=== PATIENT | male | born 1940 | race Caucasian/White ===

== ENCOUNTER 2018-11-24 11:55 | Inpatient (IN) ==
[2018-11-24] MEDS ORDERED: Morphine Inj 4 MG/ML Vial IV.PUSH ONE (12:21)
--- NOTE | 2018-11-24 12:26 | ED ---
HPI General Chief Complaint: Abdominal Pain Stated Complaint: Abd pain/N/V Time Seen by Provider: 11/24/18 12:21 Source: patient Mode of arrival: ambulatory Limitations: no limitations History of Present Illness HPI narrative: 78-year-old male patient with history of hypertension, chronic back pain, presents to the ER today because of periumbilical abdominal pains that started yesterday while [place] the [place]. He states it is now a 3 out of 10 but it is waxing and waning. He has vomited several times. He denies any diarrhea, fevers, or any other symptoms. He does not know of any exacerbating or alleviating factors. modifying Factors: None Associated Signs & Symptoms: Periumbilical abdominal pain, nausea and vomiting Risk Factors: None Related Data Home Medications Medication Instructions Recorded Confirmed Cbd Oil 0.5 ml PO DAILY 11/24/18 11/24/18 amlodipine [Norvasc] 2.5 mg PO DAILY 11/24/18 11/24/18 atorvastatin 40 mg PO DAILY 11/24/18 11/24/18 gabapentin 100 mg PO TID 11/24/18 11/24/18 losartan 12.5 mg PO DAILY 11/24/18 11/24/18 Allergies Allergy/AdvReac Type Severity Reaction Status Date / Time acetaminophen [From Tylenol] Allergy Severe Dizziness Verified 11/24/18 12:07 Review of Systems ROS: all other systems reviewed are negative PMFSH History History Provided By: Patient Medical History Medical History Chronic back pain (Acute) High cholesterol (Acute) History of prostate cancer (Acute) HTN (hypertension) (Acute) Surgical History Surgical History History of left-sided carotid endarterectomy (Acute) Hx of partial nephrectomy (Acute) Social History Social History Substance History: No History of Abuse Second Hand Smoke Exposure: Yes Smoking Status: Heavy tobacco smoker Tobacco Type: Cigarettes How Often Do You Have a Drink Containing Alcohol: 4 or more times a week Recent Travel in [facility] within the Last 8 Weeks: No Recent Out of Country Travel within the Last 8 Weeks: No Exam Narrative Exam Narrative: GENERAL: Well-developed elderly white male patient currently in mild distress. Awake and oriented x3. SKIN: Focused skin assessment warm/dry. HEAD: Atraumatic. Normocephalic. EYES: Pupils equal and round. No scleral icterus. No injection or drainage. ENT: No nasal bleeding or discharge. Mucous membranes pink and moist. NECK: Trachea midline. No JVD. CARDIOVASCULAR: Regular rate and rhythm. No murmur appreciated. RESPIRATORY: No accessory muscle use. Clear to auscultation. Breath sounds equal bilaterally. GASTROINTESTINAL: Abdomen soft, mild periumbilical tenderness without guarding or rebound, nondistended. Hepatic and splenic margins not palpable. GENITOURINARY: Circumcised. Testes descended bilaterally without evidence of rotation. No lesions or erythema. No urethral discharge. There are notable bilateral inguinal hernias which are quite easily reducible. Nontender to palpation. MUSCULOSKELETAL: No obvious deformities. No clubbing. No cyanosis. No edema. NEUROLOGICAL: Awake and alert. No obvious cranial nerve deficits. Motor grossly within normal limits. Normal speech. PSYCHIATRIC: Appropriate mood and affect; insight and judgment normal. Course Initial Documented Vital Signs Temperature 98.2 F 11/24/18 12:07 Pulse Rate 50 L 11/24/18 12:07 Respiratory Rate 16 11/24/18 12:07 Blood Pressure 167/73 H 11/24/18 12:07 Pulse Oximetry 98 11/24/18 12:07 Last Documented Vital Signs Temperature 98.2 F 11/24/18 12:07 Pulse Rate 50 L 11/24/18 12:07 Respiratory Rate 16 11/24/18 12:07 Blood Pressure 167/73 H 11/24/18 12:07 Pulse Oximetry 98 11/24/18 12:25 Medical Decision Making MDM Narrative Medical decision making narrative: Lab work shows elevated BUN and creatinine. Patient has history of previous partial nephrectomy. It is unclear whether the elevation in BUN and creatinine are new or not. We did not have previous records. CAT scan is showing signs of bowel obstruction. It is initially commented by radiology that there might be a incarcerated or obstructed inguinal hernia. On my evaluation, the hernias are quite easily reducible and I do not think that this is the point of obstruction. At this point, my plan would be to admit the patient for observation for bowel obstruction. Case is discussed with Dr. Rodriguez who is requesting that I put in an NG tube. Medical Screen Exam Complete: Yes Emergency Medical Condition: Yes Differential Diagnosis Differential Diagnosis: Gastritis versus gastroenteritis versus pancreatitis versus other acute intra-abdominal processes Lab Data Lab results reviewed: Yes I reviewed the patient's lab results. Result diagrams: 11/24/18 12:45 11/24/18 12:45 Lab Results 11/24/18 11/24/18 11/24/18 Range/Units 12:30 12:45 12:45 CBC w Diff Auto diff final WBC 10.2 (4.0-11.0) th/mm3 RBC 4.16 L (4.50-5.90) mil/mm3 Hgb 13.0 (13.0-17.0) gm/dL Hct 38.2 L (39.0-51.0) % MCV 91.8 (80.0-100.0) fL MCH 31.3 (27.0-34.0) pg MCHC 34.1 (32.0-36.0) % RDW 12.6 (11.6-17.2) % Plt Count 323 (150-450) th/mm3 MPV 8.8 (7.0-11.0) fL Neut % (Auto) 91.4 H (16.0-70.0) % Lymph % (Auto) 3.7 L (9.0-44.0) % [place] % (Auto) 4.6 (0.0-8.0) % Eos % (Auto) 0.0 (0.0-4.0) % Baso % (Auto) 0.3 (0.0-2.0) % Neut # (Auto) 9.3 H (1.8-7.7) th/mm3 Lymph # (Auto) 0.4 L (1.0-4.8) th/mm3 [place] # (Auto) 0.5 (0.0-0.9) th/mm3 Eos # (Auto) 0.0 (0.0-0.4) th/mm3 Baso # (Auto) 0.0 (0.0-0.2) th/mm3 WBC Differential . Differential Comment . Sodium 135 L (136-145) meq/L Potassium 4.6 (3.5-5.1) meq/L Chloride 96 L (98-107) meq/L Carbon Dioxide 28.0 (21.0-32.0) meq/L Anion Gap 11 (5-15) meq/L BUN 49 H (7-18) mg/dL Creatinine 2.60 H (0.60-1.30) mg/dL Estimated GFR 24 L (>89) mL/min Random Glucose 147 H (74-106) mg/dL Lactic Acid (0.4-2.0) mmol/L Calcium 9.9 (8.5-10.1) mg/dL Magnesium 2.6 H (1.5-2.5) mg/dL Total Bilirubin 1.0 (0.2-1.0) mg/dL AST 29 (15-37) U/L ALT 29 (12-78) U/L Alkaline Phosphatase 53 (45-117) U/L Total Protein 7.8 (6.4-8.2) g/dL Albumin 4.3 (3.4-5.0) g/dL Lipase 152 (73-393) U/L Urine Color Yellow (Yellw/Straw) Urine Clarity Clear (Clear) Urine pH 6.0 (5.0-8.5) Ur Specific [place] 1.025 (1.002-1.035) Urine Protein Trace (Neg-Trace) mg/dL Urine Glucose (UA) Negative (Negative) mg/dL Urine Ketones Trace H (Negative) mg/dL Urine Occult Blood Negative (Negative) Urine Nitrate Negative (Negative) Urine Bilirubin Negative (Negative) Urine Ictotest Negative (Negative) Urine Urobilinogen 0.2 (Less than 2) mg/dL Ur Leukocyte Esterase Negative (Negative) Urine WBC 0-5 (0-5) /hpf Urine Bacteria Rare H (None) /hpf Hyaline Casts 11-30 H (0-3) /lpf Urine Mucus Many H (Occasional) /lpf Micro UA Comment Culture not ind Ur Microscopic Review Microscopic reviewed Urine Culture Comments Culture not ind 11/24/18 Range/Units 12:48 CBC w Diff WBC (4.0-11.0) th/mm3 RBC (4.50-5.90) mil/mm3 Hgb (13.0-17.0) gm/dL Hct (39.0-51.0) % MCV (80.0-100.0) fL MCH (27.0-34.0) pg MCHC (32.0-36.0) % RDW (11.6-17.2) % Plt Count (150-450) th/mm3 MPV (7.0-11.0) fL Neut % (Auto) (16.0-70.0) % Lymph % (Auto) (9.0-44.0) % [place] % (Auto) (0.0-8.0) % Eos % (Auto) (0.0-4.0) % Baso % (Auto) (0.0-2.0) % Neut # (Auto) (1.8-7.7) th/mm3 Lymph # (Auto) (1.0-4.8) th/mm3 [place] # (Auto) (0.0-0.9) th/mm3 Eos # (Auto) (0.0-0.4) th/mm3 Baso # (Auto) (0.0-0.2) th/mm3 WBC Differential Differential Comment Sodium (136-145) meq/L Potassium (3.5-5.1) meq/L Chloride (98-107) meq/L Carbon Dioxide (21.0-32.0) meq/L Anion Gap (5-15) meq/L BUN (7-18) mg/dL Creatinine (0.60-1.30) mg/dL Estimated GFR (>89) mL/min Random Glucose (74-106) mg/dL Lactic Acid 1.6 (0.4-2.0) mmol/L Calcium (8.5-10.1) mg/dL Magnesium (1.5-2.5) mg/dL Total Bilirubin (0.2-1.0) mg/dL AST (15-37) U/L ALT (12-78) U/L Alkaline Phosphatase (45-117) U/L Total Protein (6.4-8.2) g/dL Albumin (3.4-5.0) g/dL Lipase (73-393) U/L Urine Color (Yellw/Straw) Urine Clarity (Clear) Urine pH (5.0-8.5) Ur Specific [place] (1.002-1.035) Urine Protein (Neg-Trace) mg/dL Urine Glucose (UA) (Negative) mg/dL Urine Ketones (Negative) mg/dL Urine Occult Blood (Negative) Urine Nitrate (Negative) Urine Bilirubin (Negative) Urine Ictotest (Negative) Urine Urobilinogen (Less than 2) mg/dL Ur Leukocyte Esterase (Negative) Urine WBC (0-5) /hpf Urine Bacteria (None) /hpf Hyaline Casts (0-3) /lpf Urine Mucus (Occasional) /lpf Micro UA Comment Ur Microscopic Review Urine Culture Comments Imaging Data Attestation: I personally reviewed and interpreted this imaging study as follows : Radiologist's impression: Abdomen/Pelvis CT 11/24/18 12:21 CONCLUSION: 1. Dilated loops of proximal and mid small bowel consistent with obstruction. The cause of obstruction may be related to right inguinal hernia containing small bowel loops. 2. Left inguinal hernia containing large bowel without obstruction. 3. Soft tissue density along the posterior left kidney with calcifications may be related to postsurgical changes. Follow-up outpatient imaging recommended. 4. Hepatic cyst. 5. Punctate renal vascular calcifications versus nonobstructing calculi. Discharge Plan Discharge Disposition Patient Disposition: ED Admit(ED Internal Use Only) Discharge Condition Condition: Stable Discharge Order Discharge Orders: ED Use Only Admit Order (Routine); Ordered 11/24/18 Ordered By: Zion Lynne Discharge Details Anticipated Discharge Date: 11/24/18 Diagnosis: Small bowel obstruction Physicians Team ED Provider: Zion Lynne Rxs /Orders / Referrals /Forms Prescriptions: No Action atorvastatin 40 mg Tablet 40 mg PO DAILY RF: 0 amlodipine [Norvasc] 2.5 mg Tablet 2.5 mg PO DAILY RF: 0 losartan 25 mg Tablet 12.5 mg PO DAILY RF: 0 gabapentin 100 mg Capsule 100 mg PO TID RF: 0 Cbd Oil 0.5 ml PO DAILY RF: 0 Status ED Status: With Doctor
[2018-11-24 13:07] LABS: Chloride 96 meq/L (98-107); Potassium 4.6 meq/L (3.5-5.1); Sodium 135 meq/L (136-145)
[2018-11-24 13:09] LABS: Baso % (Auto) 0.3 % (0.0-2.0); Hematocrit 38.2 % (39.0-51.0); Lymph # (Auto) 0.4 th/mm3 (1.0-4.8); Lymph % (Auto) 3.7 % (9.0-44.0); Mean Corpuscular HGB Conc 34.1 % (32.0-36.0); Mean Corpuscular Hemoglobin 31.3 pg (27.0-34.0); Mean Corpuscular Volume 91.8 fL (80.0-100.0); Mean Platelet Volume 8.8 fL (7.0-11.0); Mono # (Auto) 0.5 th/mm3 (0.0-0.9); Mono % (Auto) 4.6 % (0.0-8.0); Neut # (Auto) 9.3 th/mm3 (1.8-7.7); Neut % (Auto) 91.4 % (16.0-70.0); Platelet Count 323 th/mm3 (150-450); Red Blood Count 4.16 mil/mm3 (4.50-5.90); Red Cell Distribution Width 12.6 % (11.6-17.2); White Blood Count 10.2 th/mm3 (4.0-11.0)
[2018-11-24 13:11] LABS: Albumin 4.3 g/dL (3.4-5.0); Anion Gap 11 meq/L (5-15); Blood Urea Nitrogen 49 mg/dL (7-18); Calcium 9.9 mg/dL (8.5-10.1); Glucose,Random 147 mg/dL (74-106); Lipase 152 U/L (73-393); Magnesium 2.6 mg/dL (1.5-2.5)
[2018-11-24 13:14] LABS: Alanine Aminotransferase 29 U/L (12-78); Aspartate Aminotransferase 29 U/L (15-37); Glomerular Filtration Rate 24 mL/min (>89)
[2018-11-24 13:16] LABS: Total Protein 7.8 g/dL (6.4-8.2)
[2018-11-24 13:17] LABS: Alkaline Phosphatase 53 U/L (45-117)
[2018-11-24 13:51] LABS: Clarity,Urine Clear (Clear); Color,Urine Yellow (Yellw/Straw); Glucose,Urine (UA) Negative (Negative); Leukocyte Esterase,Urine Negative (Negative); Nitrite,Urine Negative (Negative); Specific Gravity,Urine 1.025 (1.002-1.035); Urobilinogen,Urine 0.2 mg/dL (Less than 2)
--- NOTE | 2018-11-24 13:51 | CT ---
EXAM DATE: 11/24/2018 1:40 PM EST AGE/SEX: 78 years / Male INDICATIONS: Periumbilical pain with nausea and vomiting. CLINICAL DATA: This is the patient's initial encounter. Patient reports that signs and symptoms have been present for 2 days and indicates a pain score of 3/10. MEDICAL/SURGICAL HISTORY: Hypercholesterolemia. Carcinoma, prostatic. Hypertension. Carotid e ndarterectomy. Partial nephrectomy. RADIATION DOSE: 10.27 CTDI (mGy) COMPARISON: No prior exams available for comparison. TECHNIQUE: Multiple contiguous axial images were obtained through the abdomen. Images were obtained using multiple row detector helical technique. Using automated exposure control and adjustment of the mA and/or kV according to patient size, radiation dose was kept as low as reasonably achievable to o btain optimal diagnostic quality images. DICOM format image data is available electronically for rev iew and comparison. FINDINGS: Lower Lungs: The visualized lower lungs are clear. Liver: The liver has a homogeneous density without space-occupying lesion. There is no dilation of th e biliary tree. Hepatic low-density likely a cyst. Spleen: Homogeneous density without enlargement. Pancreas: Unremarkable without mass or calcification. Kidneys: Some punctate bilateral renal calculi versus renal vascular calcifications. Postsurgical ch anges with scarring and calcification along the posterior left kidney with minimal soft tissue densit y measuring 1.9 cm. Adrenal Glands: Unremarkable. Aorta: The aorta and proximal iliac vessels are grossly unremarkable without aneurysmal dilation. Bowel/Mesentery: Multiple dilated loops of proximal/mid small bowel. Abdominal Wall: Intact. Retroperitoneum: No evidence of adenopathy in the retrocrural, para-aortic, or deep pelvic regions. Bladder: Contours are smooth. Reproductive Organs: No abnormal masses or calcifications seen. Inguinal: Left inguinal hernia containing loop of sigmoid colon without obstruction. Right inguinal h ernia containing loop of small bowel. Bony Structures: Unremarkable. CONCLUSION: 1. Dilated loops of proximal and mid small bowel consistent with obstruction. The cause of obstructi on may be related to right inguinal hernia containing small bowel loops. 2. Left inguinal hernia containing large bowel without obstruction. 3. Soft tissue density along the posterior left kidney with calcifications may be related to postsur gical changes. Follow-up outpatient imaging recommended. 4. Hepatic cyst. 5. Punctate renal vascular calcifications versus nonobstructing calculi. Electronically signed by: Adolfo Veras MD Board Certified Radiologist 11/24/2018 1:50 PM EST
[2018-11-24 13:56] LABS: Bilirubin,Urine Negative (Negative); Ictotest,Urine Negative (Negative)
[2018-11-24 14:00] LABS: Bacteria,Urine Rare /hpf; Mucus,Urine Many /lpf (Occasional); WBC,Urine 0-5 /hpf (0-5)
[2018-11-24] MEDS ORDERED: Sod Chloride 0.9% Inj 1,000 ML IV.SIG ONE (14:42)
[2018-11-24] MEDS ORDERED: Bisacodyl 10 MG Supp RECTAL PRN (14:43)
[2018-11-24] MEDS: Sod Chloride 0.9% Inj 1,000 ML IV.CONT SCH (14:53)
--- NOTE | 2018-11-24 18:09 | P.HPIM ---
History of Present Illness Primary Care Physician: Henrietta Peoples Chief Complaint: Abdominal pain with nausea vomiting History of Present Illness: 78-year-old male with known history of hypertension, hyperlipidemia who presented to the hospital because of abdominal pain, nausea and vomiting. Patient states that he was in his normal state of health until yesterday while he was out playing golf he started developing a sharp stabbing pain in the middle part of his abdomen it was persisted throughout the day. Patient did try to eat and drink however it caused the pain to get worse. He did start having episodes of nausea and vomiting last evening. He was able to sleep through the night and then today he was still having the intermittent stabbing type abdominal pain in the abdomen. He did have a normal bowel movement at 11 morning. Shortly after that he had another episode of vomiting. Because the pain did not resolve and he continued to be nauseous with vomiting. Patient came to emergency department for evaluation found to have a small bowel obstruction. Upon review of CT scan does appear that he has bilateral lower inguinal hernias with contained bowel. These were easily reducible and patient's pain did improve. The patient indicates that he does have history of bilateral inguinal hernias. He has notified by his biomedical doctor that since they are not causing any problems there is no reason to have any surgery at that time. Patient had NG tube placement as recommended by ER physician the patient be admitted for further evaluation and management. Diagnosis (1) Small bowel obstruction: Inpatient Certification Inpatient Certification: I certify that the inpatient services were ordered in accordance with Medicare regulations governing the order. This includes certification that hospital inpatient services are reasonable and necessary and in the case of services not specified as inpatient-only under 42 CFR 419.22(n), that they are appropriately provided as inpatient services in accordance to with the 2-midnight benchmark under 43 CFR 412.3(e) Estimated Total Length of Stay (Days): 3 Plans for Post Hospital Care: Not yet determined Review of Systems Review of Systems: all other systems reviewed are negative Gastrointestinal: Reports nausea and Reports vomiting [facility] Medical History Medical History Chronic back pain (Acute) High cholesterol (Acute) History of prostate cancer (Acute) HTN (hypertension) (Acute) Surgical History Surgical History History of left-sided carotid endarterectomy (Acute) Hx of partial nephrectomy (Acute) Family History Family History Other No pertinent family history Social History Social History Substance History: No History of Abuse Second Hand Smoke Exposure: Yes Smoking Status: Heavy tobacco smoker Tobacco Type: Cigarettes Packs Per Day: 0.75 Cigarettes Per Day: 15.0 Years Smoked: 60 Pack-Years: 45.00 How Often Do You Have a Drink Containing Alcohol: 4 or more times a week Recent Travel in [facility] within the Last 8 Weeks: No Recent Out of Country Travel within the Last 8 Weeks: No Immunization History Tetanus Immunization: Unsure Hx Influenza Vaccine This Season: No Medications and Allergies Allergies Allergy/AdvReac Type Severity Reaction Status Date / Time acetaminophen [From Tylenol] Allergy Severe Dizziness Verified 11/24/18 12:07 Home Medications Medication Instructions Recorded Confirmed Type Cbd Oil 0.5 ml PO DAILY 11/24/18 11/24/18 History amlodipine [Norvasc] 2.5 mg PO DAILY 11/24/18 11/24/18 History atorvastatin 40 mg PO DAILY 11/24/18 11/24/18 History gabapentin 100 mg PO TID 11/24/18 11/24/18 History losartan 12.5 mg PO DAILY 11/24/18 11/24/18 History Active Medications: Active Medications Al Hydroxide/Mg Hydroxide (Milk Of Magnesia Liq) 30 ml PO Q12H PRN PRN Reason: Mild Constipation Bisacodyl (Dulcolax Supp) 10 mg RECTAL DAILY PRN PRN Reason: SEVERE CONSITIPATION Sodium Chloride (Ns Inj) 1,000 mls @ 100 mls/hr IV.CONT .Q10H [facility] Last Admin: 11/24/18 14:53 Dose: 100 mls/hr Lactulose (Lactulose Liq) 30 ml PO DAILY PRN PRN Reason: SEVERE CONSITIPATION Ondansetron HCl (Zofran Inj) 4 mg IV.PUSH Q6H PRN PRN Reason: NAUSEA OR VOMITING Sennosides (Senokot) 17.2 mg PO Q12H PRN PRN Reason: Moderate Constipation Sodium Chloride (Ns Flush) 2 ml IV.FLUSH BID JORDYN Sodium Chloride (Ns Flush) 2 ml IV.FLUSH PRN PRN PRN Reason: FLUSH AFTER USING IV ACCESS Physical Exam Vital signs: Last Vital Signs Temp 98.2 F 11/24/18 12:07 Pulse 49 L 11/24/18 15:38 Resp 16 11/24/18 15:38 BP 180/83 H 11/24/18 15:38 Pulse Ox 98 11/24/18 12:25 Intake & Output 11/22/18 11/23/18 11/24/18 11/25/18 06:59 06:59 06:59 06:59 Intake Total 1000 / 1000 Balance 1000 / 1000 Weight 79.5 kg Narrative: GENERAL: Well-developed, well-nourished, in no acute distress. alert and orientated HEENT: Head is normocephalic without any lesions or masses noted. Facial features are symmetric. Eyes: Pupils equal round reactive to light. Extraocular muscles are intact. Conjunctivae were clear. Oropharyngeal: Pharynx without any erythema edema. Tongue is midline without deviation. Buccal mucosa is moist without any masses or lesions NECK: Supple without any masses. Trachea midline no deviation. No JVD, no bruits are appreciated CARDIAC: Regular rhythm, regular rate. S1/S2 are heard. No murmurs gallops or rubs. LUNGS: Clear to auscultation bilaterally. No wheeze, rhonchi or rales. No use of accessory muscles on inspiration or expiration. ABDOMEN: Soft, nontender. Nondistended. Bowel sounds heard in all 4 quadrants. No organomegaly or masses. Negative rebound, negative guarding EXTREMITIES: No edema, pulses are equal bilaterally. No cyanosis or clubbing NEUROLOGY: Mood and affect appear appropriate. Cranial nerves II through XII grossly intact. Muscle strength 5/5 in upper and lower extremities bilaterally. Deep tendon reflexes are 2+ in upper and lower extremities bilaterally. Results Labs CBC & Chem 7: 11/25/18 04:55 11/25/18 04:55 Imaging Impressions Abdomen/Pelvis CT 11/24/18 12:21 CONCLUSION: 1. Dilated loops of proximal and mid small bowel consistent with obstruction. The cause of obstruction may be related to right inguinal hernia containing small bowel loops. 2. Left inguinal hernia containing large bowel without obstruction. 3. Soft tissue density along the posterior left kidney with calcifications may be related to postsurgical changes. Follow-up outpatient imaging recommended. 4. Hepatic cyst. 5. Punctate renal vascular calcifications versus nonobstructing calculi. Caprini VTE Risk Assessment Caprini VTE Risk Assessment: Moderate/High Risk (score >= 2) Caprini Risk Assessment Model: Point Value = 1 Point Value = 2 Point Value = 3 Point Value = 5 Age 41-60 Minor surgery BMI > 25 kg/m2 Swollen legs Varicose veins or History of unexplained or recurrent spontaneous Oral contraceptives or hormone replacement Sepsis (< 1 month) Serious lung disease, including pneumonia (< 1 month) Abnormal pulmonary function Acute myocardial infarction Congestive heart failure (< 1 month) History of inflammatory bowel disease Medical patient at bed rest Age 61-74 Arthroscopic surgery Major open surgery (> 45 min) Laparoscopic surgery (> 45 min) Malignancy Confined to bed (> 72 hours) Immobilizing plaster cast Central venous access Age >= 75 History of VTE Family history of VTE Factor V Leiden Prothrombin [id number] Lupus anticoagulant Anticardiolipin antibodies Elevated serum homocysteine Heparin-induced thrombocytopenia Other congenital or acquired thrombophilia Stroke (< 1 month) Elective arthroplasty Hip, pelvis, or leg fracture Acute spinal cord injury (< 1 month) Prophylaxis Regimen: Total Risk Factor Score Risk Level Prophylaxis Regimen 0-1 Low Early ambulation 2 Moderate Order ONE of the following: *Sequential Compression Device (SCD) *Heparin 5000 units SQ BID 3-4 Higher Order ONE of the following medications: *Heparin 5000 units SQ TID *Enoxaparin/Lovenox 40 mg SQ daily (WT < 150 kg, CrCl > 30 mL/min) *Enoxaparin/Lovenox 30 mg SQ daily (WT < 150 kg, CrCl > 10-29 mL/min) *Enoxaparin/Lovenox 30 mg SQ BID (WT < 150 kg, CrCl > 30 mL/min) AND/OR *Sequential Compression Device (SCD) 5 or more Highest Order ONE of the following medications: *Heparin 5000 units SQ TID (Preferred with Epidurals) *Enoxaparin/Lovenox 40 mg SQ daily (WT < 150 kg, CrCl > 30 mL/min) *Enoxaparin/Lovenox 30 mg SQ daily (WT < 150 kg, CrCl > 10-29 mL/min) *Enoxaparin/Lovenox 30 mg SQ BID (WT < 150 kg, CrCl > 30 mL/min) AND *Sequential Compression Device (SCD) Assessment and Plan (1) Small bowel obstruction: Code(s): K56.609 - Unspecified intestinal obstruction, unspecified as to partial versus complete obstruction Status: Acute Plan Small bowel obstruction CT scan indicates dilated loops of proximal and mid small bowel consistent with obstruction. Because of obstruction may be related to right inguinal hernia containing small bowel loops. Left inguinal hernia also containing large bowel without obstruction. NG tube was placed to low intermittent wall suction Hernias were reduced General surgery was consulted, they recommended that the patient continues to be asymptomatic, nonpainful. May clamp NG tube in the morning, start clear liquid diet and if he continues to remain stable can remove the NG tube. Continue IV fluids Remain n.p.o. tonight Continue pain control Azotemia -Unknown whether acute versus chronic -Continue IV fluids -Continue monitor renal function -Avoid nephrotoxins Hypertension, hyperlipidemia Continue home medications when patient can tolerate p.o. Start Vasotec as needed for blood pressure control DVT prevention Sequential compression devices H&P: Quality VTE Deep Vein Thrombosis/Pulmonary Embolism Present on Admission: No
--- NOTE | 2018-11-24 18:14 | MB ---
cc: Aries Landa MD DATE: 11/24/2018 PERSON REQUESTING CONSULTATION: Maverick Rodriguez MD REASON FOR CONSULTATION: Bilateral inguinal hernia and recent small-bowel obstruction. HISTORY OF PRESENT ILLNESS: The patient is a 78-year-old male who has a known history of bilateral inguinal hernias that were being followed by [facility], as they were asymptomatic. The patient states that he developed epigastric pain that was severe and sudden without radiation. He presented to the emergency department and underwent evaluation for his pain and was found to have bilateral inguinal hernias on exam, and CT scan showed bilateral inguinal hernias containing loops of bowel. This was read by the radiologist as dilated loops of proximal and mid small bowel consistent with obstruction. The obstruction may be related to right inguinal hernia. Per the ER physician documentation, hernias were either reduced or reducible. The patient was admitted to [facility] and General Surgery was consulted for further evaluation. The patient denies any previous complication of his hernias or previous repair. REVIEW OF SYSTEMS: A 12-point review of systems conducted with the patient and is negative except for the pertinent positives mentioned above in the history of present illness. PAST MEDICAL HISTORY: Chronic back pain, high cholesterol, history of prostate cancer, hypertension. PAST SURGICAL HISTORY: Left carotid endarterectomy, history left partial nephrectomy. ALLERGIES: TYLENOL. HOME MEDICATIONS: 1. Norvasc. 2. Atorvastatin. 3. Gabapentin. 4. Losartan. 5. CBD oil. SOCIAL HISTORY: The patient does use cigarettes. Denies alcohol or illicit drug use. FAMILY HISTORY: Reviewed, noncontributory. PHYSICAL EXAMINATION: VITAL SIGNS: Temperature 98.2 degrees, pulse rate 50, blood pressure 167/73, O2 saturation 98%. GENERAL: The patient is a well-developed, well-nourished, male in no acute distress. He does not appear acute or chronically ill. HEENT: Head is normocephalic, atraumatic. His pupils are round, reactive to light. Sclerae are anicteric. Oral cavity is clear. Airway is patent. NECK: Supple. No JVD. LUNGS: Breath sounds present bilaterally. Nonlabored breathing pattern. HEART: Regular rate and rhythm. PMI is nondisplaced. ABDOMEN: Soft, mildly distended and tympanic with normal bowel sounds. There is no peritonitis or rebound tenderness. There is no pain. A nephrectomy scar is seen, well-healed. Bilateral inguinal hernias are felt and easily reducible on exam, with no evidence of incarceration or overlying skin changes. BACK: No CVA tenderness. EXTREMITIES: No clubbing, cyanosis or edema. Warm, perfused and intact. Cranial nerves 2-12 are grossly intact. NEUROLOGIC: The patient is alert and oriented x 3. Mood, judgment, and insight are intact. Nonfocal peripheral exam. LABORATORY VALUES: White blood cell count 10.2, hemoglobin 13.0, creatinine 2.60. IMAGING: CT scan does show dilated small bowel, concerning for small-bowel obstruction with possible transition in the right lower quadrant and in the right inguinal hernia. ASSESSMENT AND PLAN: The patient is a 78-year-old male with bilateral inguinal hernias and small bowel obstruction. The patient most likely had an incarcerated inguinal hernia on the right causing his bowel obstruction that was treated and now resolved after reduction of his hernia. There is no sign of any bowel ischemia or distress or injury from the incarceration at this time. The patient also could have adhesive bowel obstruction due to previous surgery; however, this is less likely due to the concerning on the CT scan. I agree with the current conservative management at this time; however, the patient seems to be resolving his obstruction and could likely be advanced in the next 24 hours to clear liquids as a trial of resolution. I did recommend the patient undergo repair of his inguinal hernias, now that he likely had a complication of the hernias. I discussed the procedure and risks and benefits, as well as the recovery from a hernia repair. All questions were answered to his satisfaction. He is in agreement with this plan. We will follow along with the patient. Thank you very much for this consultation. MD GILBERTO Gray/hung , 05:40 PM , 05:51 PM
[2018-11-25] MEDS: Sod Chloride 0.9% Inj 1,000 ML IV.CONT SCH ×3 (01:33→20:57)
[2018-11-25 06:23] LABS: Baso % (Auto) 0.1 % (0.0-2.0); Eos % (Auto) 0.1 % (0.0-4.0); Hematocrit 32.9 % (39.0-51.0); Hemoglobin 10.9 gm/dL (13.0-17.0); Lymph # (Auto) 0.3 th/mm3 (1.0-4.8); Lymph % (Auto) 3.6 % (9.0-44.0); Mean Corpuscular HGB Conc 33.2 % (32.0-36.0); Mean Corpuscular Hemoglobin 30.1 pg (27.0-34.0); Mean Corpuscular Volume 90.5 fL (80.0-100.0); Mean Platelet Volume 8.8 fL (7.0-11.0); Mono # (Auto) 0.7 th/mm3 (0.0-0.9); Mono % (Auto) 8.2 % (0.0-8.0); Platelet Count 266 th/mm3 (150-450); Red Blood Count 3.64 mil/mm3 (4.50-5.90); Red Cell Distribution Width 12.1 % (11.6-17.2)
[2018-11-25 06:31] LABS: Chloride 103 meq/L (98-107); Sodium 139 meq/L (136-145)
[2018-11-25 06:50] LABS: Alanine Aminotransferase 20 U/L (12-78); Albumin 3.4 g/dL (3.4-5.0); Alkaline Phosphatase 41 U/L (45-117); Anion Gap 8 meq/L (5-15); Aspartate Aminotransferase 20 U/L (15-37); Blood Urea Nitrogen 47 mg/dL (7-18); Calcium 8.7 mg/dL (8.5-10.1); Carbon Dioxide 28.4 meq/L (21.0-32.0); Glomerular Filtration Rate 29 mL/min (>89); Glucose,Random 119 mg/dL (74-106); Total Protein 6.3 g/dL (6.4-8.2)
--- NOTE | 2018-11-25 08:15 | P.PNGS ---
Subjective Interval history: Resting in bed No issues overnight Feeling better Physical Exam Vital signs: Vital Signs 11/24/18 12:07 11/24/18 12:25 11/24/18 15:38 Temperature 98.2 F Pulse Rate 50 L 49 L Respiratory Rate 16 16 Blood Pressure 167/73 H 180/83 H Pulse Oximetry 98 98 11/24/18 15:40 11/24/18 19:23 11/24/18 20:00 Temperature 97.9 F 97.2 F L Pulse Rate 47 L 87 Respiratory Rate 20 18 Blood Pressure 191/79 H 179/85 H Pulse Oximetry 92 L 92 L 92 L 11/25/18 00:00 11/25/18 04:00 Temperature 97.4 F L 96.8 F L Pulse Rate 88 47 L Respiratory Rate 18 18 Blood Pressure 186/77 H 165/70 H Pulse Oximetry 94 L 97 Intake & Output 11/24/18 11/25/18 11/25/18 18:59 06:59 18:59 Intake Total 1000 / 1000 1090 / 1090 Output Total 1100 / 1100 Balance 1000 / 1000 -10 / -10 Weight 79.5 kg 79.1 kg Intake: IV 1000 / 1000 1000 / 1000 NS Inj 1,000 ML @ 100 mls/hr IV 1000 / 1000 .CONT .Q10H JORDYN Rx#:[id number] NS Inj 1,000 ML @ Wide Open IV. 1000 / 1000 SIG BOLUS ONE Rx#:[id number] Oral 90 / 90 Output: Urine 450 / 450 Gastric Drainage 650 / 650 Left Nare Nasogastric Tube 650 / 650 Other: Date of Last Bowel Movement 11/23/18 11/24/18 Narrative: Alert and awake Abd: soft; no recurrent RIH; NGT to LIWS Results - Labs 11/27/18 08:50 11/27/18 08:50 Laboratory Results - last 24 hr 11/24/18 11/24/18 11/24/18 12:30 12:45 12:45 CBC w Diff Auto diff final WBC 10.2 RBC 4.16 L Hgb 13.0 Hct 38.2 L MCV 91.8 MCH 31.3 MCHC 34.1 RDW 12.6 Plt Count 323 MPV 8.8 Neut % (Auto) 91.4 H Lymph % (Auto) 3.7 L [place] % (Auto) 4.6 Eos % (Auto) 0.0 Baso % (Auto) 0.3 Neut # (Auto) 9.3 H Lymph # (Auto) 0.4 L [place] # (Auto) 0.5 Eos # (Auto) 0.0 Baso # (Auto) 0.0 WBC Differential . Differential Comment . Sodium 135 L Potassium 4.6 Chloride 96 L Carbon Dioxide 28.0 Anion Gap 11 BUN 49 H Creatinine 2.60 H Estimated GFR 24 L Random Glucose 147 H Lactic Acid Calcium 9.9 Magnesium 2.6 H Total Bilirubin 1.0 AST 29 ALT 29 Alkaline Phosphatase 53 Total Protein 7.8 Albumin 4.3 Lipase 152 Urine Color Yellow Urine Clarity Clear Urine pH 6.0 Ur Specific [place] 1.025 Urine Protein Trace Urine Glucose (UA) Negative Urine Ketones Trace H Urine Occult Blood Negative Urine Nitrate Negative Urine Bilirubin Negative Urine Ictotest Negative Urine Urobilinogen 0.2 Ur Leukocyte Esterase Negative Urine WBC 0-5 Urine Bacteria Rare H Hyaline Casts 11-30 H Urine Mucus Many H Micro UA Comment Culture not ind Ur Microscopic Review Microscopic reviewed Urine Culture Comments Culture not ind 11/24/18 11/25/18 11/25/18 12:48 04:55 04:55 CBC w Diff Auto diff final WBC 8.0 RBC 3.64 L Hgb 10.9 L D Hct 32.9 L MCV 90.5 MCH 30.1 MCHC 33.2 RDW 12.1 Plt Count 266 MPV 8.8 Neut % (Auto) 88.0 H Lymph % (Auto) 3.6 L [place] % (Auto) 8.2 H Eos % (Auto) 0.1 Baso % (Auto) 0.1 Neut # (Auto) 7.0 Lymph # (Auto) 0.3 L [place] # (Auto) 0.7 Eos # (Auto) 0.0 Baso # (Auto) 0.0 WBC Differential . Differential Comment . Sodium 139 Potassium 4.0 Chloride 103 Carbon Dioxide 28.4 Anion Gap 8 BUN 47 H Creatinine 2.20 H Estimated GFR 29 L Random Glucose 119 H Lactic Acid 1.6 Calcium 8.7 D Magnesium Total Bilirubin 1.0 AST 20 ALT 20 Alkaline Phosphatase 41 L Total Protein 6.3 L D Albumin 3.4 D Lipase Urine Color Urine Clarity Urine pH Ur Specific [place] Urine Protein Urine Glucose (UA) Urine Ketones Urine Occult Blood Urine Nitrate Urine Bilirubin Urine Ictotest Urine Urobilinogen Ur Leukocyte Esterase Urine WBC Urine Bacteria Hyaline Casts Urine Mucus Micro UA Comment Ur Microscopic Review Urine Culture Comments - Imaging Imaging: ITS Impressions Abdomen/Pelvis CT 11/24/18 12:21 CONCLUSION: 1. Dilated loops of proximal and mid small bowel consistent with obstruction. The cause of obstruction may be related to right inguinal hernia containing small bowel loops. 2. Left inguinal hernia containing large bowel without obstruction. 3. Soft tissue density along the posterior left kidney with calcifications may be related to postsurgical changes. Follow-up outpatient imaging recommended. 4. Hepatic cyst. 5. Punctate renal vascular calcifications versus nonobstructing calculi. Assessment and Plan - Plan 78 year old male with RIH; reduced; SBO -RIH remains reduced -KUB this AM -Will clamp NGT and start clear liquids -Back to suction if nausea/vomiting occur -OOB and mobilize -IVF -Will continue nonoperative treatment
--- NOTE | 2018-11-25 09:46 | P.PNIM ---
Subjective Interval history: 78-year-old male who is seen examined today for follow-up on mild bowel obstruction. Patient denies any new complaints. He has had 6 and 50 cc output in the NG tube this morning. Awaiting KUB for evaluation. Vital signs are very labile. Patient remains afebrile. Physical Exam Vital signs: Last Vital Signs Temp 96.8 F L 11/25/18 04:00 Pulse 62 11/25/18 08:27 Resp 18 11/25/18 04:00 BP 165/70 H 11/25/18 04:00 Pulse Ox 97 11/25/18 04:00 Intake & Output 11/23/18 11/24/18 11/25/18 11/26/18 06:59 06:59 06:59 06:59 Intake Total 2089 / 2089 Output Total 1100 / 1100 Balance 990 / 990 Weight 79.1 kg Narrative: GENERAL: Well-developed, well-nourished, in no acute distress. alert and orientated HEENT: Head is normocephalic without any lesions or masses noted. Facial features are symmetric. Eyes: Extraocular muscles are intact. Conjunctivae were clear. NG tube in place NECK: Supple without any masses. Trachea midline no deviation. No JVD, CARDIAC: Regular rhythm, regular rate. S1/S2 are heard. No murmurs gallops or rubs. LUNGS: Clear to auscultation bilaterally. No wheeze, rhonchi or rales. No use of accessory muscles on inspiration or expiration. ABDOMEN: Soft, nontender. Abdomen mildly distended. Tympanic to percussion. Bowel sounds heard in all 4 quadrants. No organomegaly or masses. Negative rebound, negative guarding EXTREMITIES: No edema, pulses are equal bilaterally. No cyanosis or clubbing NEUROLOGY: Mood and affect appear appropriate. Cranial nerves II through XII grossly intact. Moving all extremities, speech is clear Results Labs CBC & Chem 7: 11/25/18 04:55 11/26/18 06:09 Imaging Imaging: Impressions Abdomen/Pelvis CT 11/24/18 12:21 CONCLUSION: 1. Dilated loops of proximal and mid small bowel consistent with obstruction. The cause of obstruction may be related to right inguinal hernia containing small bowel loops. 2. Left inguinal hernia containing large bowel without obstruction. 3. Soft tissue density along the posterior left kidney with calcifications may be related to postsurgical changes. Follow-up outpatient imaging recommended. 4. Hepatic cyst. 5. Punctate renal vascular calcifications versus nonobstructing calculi. Assessment and Plan (1) Small bowel obstruction: Code(s): K56.609 - Unspecified intestinal obstruction, unspecified as to partial versus complete obstruction Status: Acute Plan Small bowel obstruction CT scan indicates dilated loops of proximal and mid small bowel consistent with obstruction. Because of obstruction may be related to right inguinal hernia containing small bowel loops. Left inguinal hernia also containing large bowel without obstruction. NG tube was placed to low intermittent wall suction Hernias were reduced General surgery was consulted, they recommended that the patient continues to be asymptomatic, nonpainful. May clamp NG tube in the morning, start clear liquid diet and if he continues to remain stable can remove the NG tube. Continue IV fluids Remain n.p.o. tonight Continue pain control Awaiting KUB for reevaluation Azotemia, improving -Unknown whether acute versus chronic -Continue IV fluids -Continue monitor renal function -Avoid nephrotoxins Hypertension, hyperlipidemia Continue home medications when patient can tolerate p.o. Continue Vasotec as needed for blood pressure control DVT prevention Sequential compression devices Progress Note: Quality VTE Deep Vein Thrombosis/Pulmonary Embolism Present on Admission: No
--- NOTE | 2018-11-25 11:45 | XR ---
EXAM DATE: 11/25/2018 11:36 AM EST AGE/SEX: 78 years / Male INDICATIONS: Small bowel obstruction. CLINICAL DATA: This is the patient's subsequent encounter. Patient reports that signs and symptoms h ave been present for 2 days and indicates a pain score of 5/10. MEDICAL/SURGICAL HISTORY: Hypertension. Hypercholesterolemia. Carcinoma, prostatic. Nephrecto my, left. COMPARISON: [facility], CT ABDOMEN & PELVIS W/O CONTRAST, 11/24/2018. . FINDINGS: There are dilated loops of small bowel maximum diameter of 6.6 cm. There is however gas and stool thr oughout the colon. CONCLUSION: Findings are consistent with moderate partial small bowel obstruction. Electronically signed by: Chirag Kim MD Board Certified Radiologist 11/25/2018 11:44 AM EST
--- NOTE | 2018-11-26 05:51 | XR ---
EXAM DATE: 11/26/2018 5:46 AM EST AGE/SEX: 78 years / Male INDICATIONS: Abdominal pain, distension. CLINICAL DATA: This is the patient's subsequent encounter. Patient reports that signs and symptoms h ave been present for 3 days and indicates a pain score of 3/10. MEDICAL/SURGICAL HISTORY: . Hypertension. Hypercholesterolemia. Carcinoma, prostatic Nephrecto my, left. COMPARISON: [facility], ABDOMEN 1V KUB, 11/25/2018. . FINDINGS: There is an NG tube in place. There is dilated small bowel seen throughout the abdomen. Air seen wit hin a nondistended colon. Free air is not clearly seen. CONCLUSION: Persistently dilated small bowel concerning for some degree of obstruction. There is some air within a nondistended colon. Electronically signed by: Gabriel Schaefer MD Board Certified Radiologist 11/26/2018 5:50 AM EST
[2018-11-26 06:52] LABS: Potassium 3.9 meq/L (3.5-5.1)
[2018-11-26 06:55] LABS: Calcium 8.9 mg/dL (8.5-10.1)
[2018-11-26 06:56] LABS: Carbon Dioxide 30.7 meq/L (21.0-32.0)
--- NOTE | 2018-11-26 09:05 | P.PNIM ---
Subjective Interval history: 78-year-old male seen examined today for follow-up on small bowel obstruction. Patient had an episode of vomiting this morning after eating breakfast. Case was discussed with general surgery. Patient denies any pain. He continues to have hiccups since NG tube insertion. Blood pressure is difficult to manage with his NG tube in place. Patient remains afebrile Physical Exam Vital signs: Last Vital Signs Temp 97.9 F 11/26/18 04:00 Pulse 45 L 11/26/18 04:00 Resp 18 11/26/18 04:00 BP 159/72 H 11/26/18 04:00 Pulse Ox 90 L 11/26/18 04:00 Intake & Output 11/24/18 11/25/18 11/26/18 11/27/18 06:59 06:59 06:59 06:59 Intake Total 2090 / 2090 1920 / 1920 1000 / 1000 Output Total 1100 / 1100 2150 / 2150 Balance 990 / 990 -230 / -230 1000 / 1000 Weight 79.1 kg 80.5 kg Narrative: GENERAL: Well-developed, well-nourished, in no acute distress. alert and orientated. Patient still with hiccups HEENT: Head is normocephalic without any lesions or masses noted. Facial features are symmetric. Eyes: Extraocular muscles are intact. Conjunctivae were clear. NG tube in place and clamped NECK: Supple without any masses. Trachea midline no deviation. No JVD, CARDIAC: Regular rhythm, regular rate. S1/S2 are heard. No murmurs gallops or rubs. LUNGS: Clear to auscultation bilaterally. No wheeze, rhonchi or rales. No use of accessory muscles on inspiration or expiration. ABDOMEN: Soft, nontender. Abdomen mildly distended. Tympanic to percussion. Bowel sounds heard in all 4 quadrants. No organomegaly or masses. Negative rebound, negative guarding EXTREMITIES: No edema, pulses are equal bilaterally. No cyanosis or clubbing NEUROLOGY: Mood and affect appear appropriate. Cranial nerves II through XII grossly intact. Moving all extremities, speech is clear Results Labs CBC & Chem 7: 11/25/18 04:55 11/26/18 06:09 Imaging Imaging: Impressions Abdomen X-Ray 11/25/18 00:00 CONCLUSION: Findings are consistent with moderate partial small bowel obstruction. Abdomen X-Ray 11/26/18 06:00 CONCLUSION: Persistently dilated small bowel concerning for some degree of obstruction. There is some air within a nondistended colon. Assessment and Plan (1) Small bowel obstruction: Code(s): K56.609 - Unspecified intestinal obstruction, unspecified as to partial versus complete obstruction Status: Acute Plan Small bowel obstruction CT scan indicates dilated loops of proximal and mid small bowel consistent with obstruction. Because of obstruction may be related to right inguinal hernia containing small bowel loops. Left inguinal hernia also containing large bowel without obstruction. NG tube is clamped Hernias were reduced General surgery was consulted, who is recommending small bowel follow-through and if normal can remove NG tube, if abnormal will need further recommendations Continue IV fluids Continue pain control KUB still showing distended bowel with partial small bowel obstruction Small bowel follow-through has been requested, await results Azotemia, improving -Unknown whether acute versus chronic -Continue IV fluids -Continue monitor renal function -Avoid nephrotoxins Hypertension, hyperlipidemia Continue home medication Continue Vasotec as needed for blood pressure control DVT prevention Sequential compression devices Progress Note: Quality VTE Deep Vein Thrombosis/Pulmonary Embolism Present on Admission: No
[2018-11-26] MEDS ORDERED: Diatrizoate Meglum/Diatrizoate Sod Liq 120 ML Bottle (for RAD diag) NG/OG ONE (10:30)
[2018-11-26] MEDS: amLODIPine 5 MG Tablet PO SCH (12:55)
[2018-11-26] MEDS: Gabapentin 100 MG Capsule PO SCH ×2 (12:56→17:13)
--- NOTE | 2018-11-26 14:26 | P.PNGS ---
Subjective Interval history: Seen about 0800 ---- just had episode of vomiting after quickly drinking clear liquids Tolerated his NGT clamped all night Physical Exam Vital signs: Vital Signs 11/25/18 16:00 11/25/18 20:00 11/25/18 20:53 Temperature 98.3 F 98.3 F Pulse Rate 46 L 54 L Respiratory Rate 20 18 Blood Pressure 170/78 H Pulse Oximetry 94 L 90 L 92 L 11/25/18 20:55 11/26/18 00:00 11/26/18 04:00 Temperature 97.4 F L 97.9 F Pulse Rate 46 L 45 L Respiratory Rate 18 18 Blood Pressure 179/82 H 187/89 H 159/72 H Pulse Oximetry 90 L 90 L 11/26/18 08:00 11/26/18 12:00 Temperature 97.4 F L Pulse Rate 47 L 48 L Respiratory Rate 20 18 Blood Pressure 198/80 H 187/74 H Pulse Oximetry 96 Intake & Output 11/25/18 11/26/18 11/26/18 18:59 06:59 18:59 Intake Total 1630 / 1630 290 / 290 1480 / 1480 Output Total 650 / 650 1500 / 1500 200 / 200 Balance 980 / 980 -1210 / -1210 1280 / 1280 Weight 80.5 kg Intake: IV 1000 / 1000 200 / 200 1000 / 1000 NS Inj 1,000 ML @ 100 mls/hr IV 1000 / 1000 200 / 200 1000 / 1000 .CONT .Q10H JORDYN Rx#:[id number] Oral 630 / 630 90 / 90 480 / 480 Output: Urine 300 / 300 1500 / 1500 200 / 200 Gastric Drainage 350 / 350 Left Nare Nasogastric Tube 350 / 350 Other: # Voids 1 Date of Last Bowel Movement 11/24/18 Narrative: Alert and awake Abd: distended; no hernia noted NGT clamped Results - Labs 11/29/18 04:07 11/29/18 04:01 Laboratory Results - last 24 hr 11/26/18 06:09 Sodium 142 Potassium 3.9 Chloride 104 Carbon Dioxide 30.7 Anion Gap 7 BUN 43 H Creatinine 2.00 H Estimated GFR 33 L Random Glucose 141 H Calcium 8.9 - Imaging Imaging: ITS Impressions Abdomen/Pelvis CT 11/24/18 12:21 CONCLUSION: 1. Dilated loops of proximal and mid small bowel consistent with obstruction. The cause of obstruction may be related to right inguinal hernia containing small bowel loops. 2. Left inguinal hernia containing large bowel without obstruction. 3. Soft tissue density along the posterior left kidney with calcifications may be related to postsurgical changes. Follow-up outpatient imaging recommended. 4. Hepatic cyst. 5. Punctate renal vascular calcifications versus nonobstructing calculi. Abdomen X-Ray 11/26/18 06:00 CONCLUSION: Persistently dilated small bowel concerning for some degree of obstruction. There is some air within a nondistended colon. Assessment and Plan - Plan 78 year old male with RIH; reduced; SBO -RIH remains reduced -KUB this AM reviewed -SBFT today -If operative intervention needed will plan to transfer to [facility] -Discussed with Gabriel KRUGER
[2018-11-26] MEDS: Sod Chloride 0.9% Inj 1,000 ML IV.CONT SCH (14:39)
--- NOTE | 2018-11-26 14:47 | FL ---
EXAM DATE: 11/26/2018 2:30 PM EST AGE/SEX: 78 years / Male INDICATIONS: Small bowel obstruction. CLINICAL DATA: This is the patient's initial encounter. Patient reports that signs and symptoms have been present for 4 - 6 days and indicates a pain score of 3/10. MEDICAL/SURGICAL HISTORY: Hypertension. Hypercholesterolemia. Carcinoma, prostatic. Nephrectomy , left . COMPARISON: [facility], ABDOMEN 1V KUB, 11/26/2018. . FLUORO TIME: 0 IMAGE COUNT: 12 RADIATION DOSE: 0 DAP CONTRAST: Gastrografin FINDINGS: The preliminary encoding clerk film demonstrates a generalized ileus with pathologic distention of the small i ntestinal tract. Nasogastric tube is noted in place. Following ingestion of Gastrografin there is delineation of a distended stomach. The patient had imme diate emesis of the contrast. Exam was aborted. CONCLUSION: Gastrointestinal ileus Prompt emesis of contrast after ingestion. Electronically signed by: Juan F Nobles MD Board Certified Radiologist 11/26/2018 2:45 PM EST
--- NOTE | 2018-11-26 17:24 | XR ---
EXAM DATE: 11/26/2018 5:20 PM EST AGE/SEX: 78 years / Male INDICATIONS: . Hypoxia after emesis from small bowl follow through. CLINICAL DATA: This is the patient's subsequent encounter. Patient reports that signs and symptoms h ave been present for 3 days and indicates a pain score of 0/10. MEDICAL/SURGICAL HISTORY: . Hypertension. Hypercholesterolemia. Carcinoma, . Nephrectomy, lef t. COMPARISON: No prior exams available for comparison. FINDINGS: AP and lateral views of the chest demonstrate the lungs to be symmetrically aerated without evidence of mass, infiltrate or effusion. The cardiomediastinal contours are unremarkable. Osseous structure s are intact. There is a NG tube in stomach. CONCLUSION: No acute intrathoracic disease. Electronically signed by: Daryn Jimenez MD Board Certified Radiologist 11/26/2018 5:23 PM EST
--- NOTE | 2018-11-27 01:13 | XR ---
EXAM DATE: 11/27/2018 1:08 AM EST AGE/SEX: 78 years / Male INDICATIONS: NG tube placement. Abdominal pain and abnormal bowel gas pattern. CLINICAL DATA: This is the patient's subsequent encounter. Patient reports that signs and symptoms h ave been present for 3 days and indicates a pain score of 3/10. MEDICAL/SURGICAL HISTORY: . Hypertension. Hypercholesterolemia. Carcinoma. . Nephrectomy, left . COMPARISON: [facility], ABDOMEN 1V KUB, 11/26/2018. . FINDINGS: View of the upper abdomen was obtained and demonstrates interval placement of nasogastric tube with t ip in the proximal stomach. The distal side-port lies at the level of the gastroesophageal junction. Gas and stool is noted segmentally in the colon. There are several loops of mildly dilated air-contai hadley small bowel in the upper abdomen. There is no evidence of free air. The mid and lower abdomen we re not included on this study. There is a small amount of apparent contrast the stomach. Lung bases a re stable. Bony structures are intact. CONCLUSION: 1. Nasogastric tube with the tip in the proximal stomach. The side-port lies at the level of the gas troesophageal junction and could be advanced at least several centimeters. 2. Visualization of the known abnormal bowel gas pattern. Electronically signed by: Bg Yap MD Board Certified Radiologist 11/27/2018 1:12 AM EST
--- NOTE | 2018-11-27 07:51 | P.PNGS ---
Subjective Patient reports: no bowel movement (still distended ) Physical Exam Vital signs: Vital Signs 11/26/18 08:00 11/26/18 12:00 11/26/18 16:00 Temperature 97.4 F L 98.5 F Pulse Rate 47 L 48 L 48 L Respiratory Rate 20 18 21 Blood Pressure 198/80 H 187/74 H 177/72 H Pulse Oximetry 96 87 L 11/26/18 17:12 11/26/18 17:32 11/26/18 20:00 Temperature 98.3 F Pulse Rate 71 Respiratory Rate 20 Blood Pressure 168/84 H 144/63 H Pulse Oximetry 92 L 94 L 11/26/18 20:20 11/26/18 20:23 11/27/18 00:00 Temperature 96.9 F L Pulse Rate 52 L Respiratory Rate 18 Blood Pressure 145/68 H Pulse Oximetry 85 L 91 L 90 L 11/27/18 01:00 Temperature Pulse Rate Respiratory Rate Blood Pressure Pulse Oximetry 93 L Intake & Output 11/26/18 11/27/18 11/27/18 18:59 06:59 18:59 Intake Total 1480 / 1480 1000 / 1000 Output Total 1200 / 1200 2300 / 2300 Balance 280 / 280 -1300 / -1300 Weight 82.3 kg Intake: IV 1000 / 1000 1000 / 1000 NS Inj 1,000 ML @ 100 mls/hr IV 1000 / 1000 1000 / 1000 .CONT .Q10H [facility] Rx#:[id number] Oral 480 / 480 Output: Urine 400 / 400 Gastric Drainage 800 / 800 2300 / 2300 Left Nare Nasogastric Tube 800 / 800 2300 / 2300 Other: Date of Last Bowel Movement 11/24/18 11/24/18 - Routine Abdominal Exam Present: soft (distension) Results - Labs 11/25/18 04:55 11/26/18 06:09 - Imaging Imaging: ITS Impressions Abdomen/Pelvis CT 11/24/18 12:21 CONCLUSION: 1. Dilated loops of proximal and mid small bowel consistent with obstruction. The cause of obstruction may be related to right inguinal hernia containing small bowel loops. 2. Left inguinal hernia containing large bowel without obstruction. 3. Soft tissue density along the posterior left kidney with calcifications may be related to postsurgical changes. Follow-up outpatient imaging recommended. 4. Hepatic cyst. 5. Punctate renal vascular calcifications versus nonobstructing calculi. Chest X-Ray 11/26/18 00:00 CONCLUSION: No acute intrathoracic disease. Small Bowel X-Ray 11/26/18 00:00 CONCLUSION: Gastrointestinal ileus Prompt emesis of contrast after ingestion. Abdomen X-Ray 11/27/18 00:45 CONCLUSION: 1. Nasogastric tube with the tip in the proximal stomach. The side-port lies at the level of the gastroesophageal junction and could be advanced at least several centimeters. 2. Visualization of the known abnormal bowel gas pattern. Assessment and Plan - Plan sbo PLAN transfer to [facility] surgical planning ng sxn ivf pain control
--- NOTE | 2018-11-27 08:28 | P.PNIM ---
Subjective Interval history: 78-year-old male seen examined today for follow-up on ileus/small bowel obstruction. Patient still with persistent small bowel obstruction/ileus. NG tube to low intermittent wall suction. Patient states that he did pass gas this morning. Patient still with persistent hiccups. Vital signs, blood pressure is labile. Patient remains afebrile. Physical Exam Vital signs: Last Vital Signs Temp 96.9 F L 11/27/18 00:00 Pulse 52 L 11/27/18 00:00 Resp 18 11/27/18 00:00 BP 145/68 H 11/27/18 00:00 Pulse Ox 92 L 11/27/18 08:26 Intake & Output 11/25/18 11/26/18 11/27/18 11/28/18 06:59 06:59 06:59 06:59 Intake Total 2090 / 2090 1920 / 1920 2480 / 2480 Output Total 1100 / 1100 2150 / 2150 3500 / 3500 Balance 990 / 990 -230 / -230 -1020 / -1020 Weight 79.1 kg 80.5 kg 82.3 kg Narrative: GENERAL: Well-developed, well-nourished, in no acute distress. alert and orientated. Patient still with hiccups HEENT: Head is normocephalic without any lesions or masses noted. Facial features are symmetric. Eyes: Extraocular muscles are intact. Conjunctivae were clear. NG tube in place and attached to low intermittent wall suction NECK: Supple without any masses. Trachea midline no deviation. No JVD, CARDIAC: Regular rhythm, regular rate. S1/S2 are heard. No murmurs gallops or rubs. LUNGS: Clear to auscultation bilaterally. No wheeze, rhonchi or rales. No use of accessory muscles on inspiration or expiration. ABDOMEN: Soft, nontender. Abdomen mildly distended. Tympanic to percussion. Bowel sounds faintly heard in all 4 quadrants. No organomegaly or masses. Negative rebound, negative guarding EXTREMITIES: No edema, pulses are equal bilaterally. No cyanosis or clubbing NEUROLOGY: Mood and affect appear appropriate. Cranial nerves II through XII grossly intact. Moving all extremities, speech is clear Results Labs CBC & Chem 7: 11/25/18 04:55 11/26/18 06:09 Imaging Imaging: Impressions Chest X-Ray 11/26/18 00:00 CONCLUSION: No acute intrathoracic disease. Small Bowel X-Ray 11/26/18 00:00 CONCLUSION: Gastrointestinal ileus Prompt emesis of contrast after ingestion. Abdomen X-Ray 11/27/18 00:45 CONCLUSION: 1. Nasogastric tube with the tip in the proximal stomach. The side-port lies at the level of the gastroesophageal junction and could be advanced at least several centimeters. 2. Visualization of the known abnormal bowel gas pattern. Assessment and Plan (1) Small bowel obstruction: Code(s): K56.609 - Unspecified intestinal obstruction, unspecified as to partial versus complete obstruction Status: Acute Plan Small bowel obstruction CT scan indicates dilated loops of proximal and mid small bowel consistent with obstruction. Because of obstruction may be related to right inguinal hernia containing small bowel loops. Left inguinal hernia also containing large bowel without obstruction. NG tube is attached to low intermittent wall suction, x-ray indicates that NG tube can be advanced several centimeters. Nursing staff was notified Hernias were reduced General surgery was consulted, they have requested that the patient be transferred to the main hospital for surgical intervention Continue IV fluids Continue pain control KUB still showing distended bowel, no significant change from previous Small bowel follow-through had to be stopped to abrupt vomiting after contrast insertion, indicating gastrointestinal ileus Azotemia, improving -Unknown whether acute versus chronic -Continue IV fluids -Continue monitor renal function -Avoid nephrotoxins Hypertension, hyperlipidemia Continue home medication Continue Vasotec as needed for blood pressure control DVT prevention Sequential compression devices Progress Note: Quality VTE Deep Vein Thrombosis/Pulmonary Embolism Present on Admission: No
[2018-11-27] MEDS: Gabapentin 100 MG Capsule PO SCH ×2 (08:29→18:34)
[2018-11-27] MEDS: amLODIPine 5 MG Tablet PO SCH (08:29)
--- NOTE | 2018-11-27 08:34 | XR ---
EXAM DATE: 11/27/2018 8:27 AM EST AGE/SEX: 78 years / Male INDICATIONS: Small bowel obstruction. CLINICAL DATA: This is the patient's subsequent encounter. Patient reports that signs and symptoms h ave been present for 4 - 6 days and indicates a pain score of 0/10. MEDICAL/SURGICAL HISTORY: Hypertension. Hypercholesterolemia. Carcinoma, prostatic. Nephrectomy , left . COMPARISON: [facility], ABDOMEN SINGLE VIEW, 11/27/2018. . FINDINGS: Nasogastric tube and sidehole are across the GE junction. There is persistent proximal small bowel d ilatation with small bowel dilated to approximately 6 cm suspicious for proximal small bowel obstruct ion. There is no free air. There is been no significant interval change following reposition of the nasogastric tube. CONCLUSION: Nasogastric tube in good position with decompression of the stomach Persistent proximal small bowel dilatation to 6 cm. Electronically signed by: Jonas Danielson MD Board Certified Radiologist 11/27/2018 8:32 AM EST
[2018-11-27 09:05] LABS: Baso % (Auto) 0.2 % (0.0-2.0); Eos % (Auto) 0.4 % (0.0-4.0); Hematocrit 33.6 % (39.0-51.0); Hemoglobin 11.3 gm/dL (13.0-17.0); Lymph # (Auto) 0.4 th/mm3 (1.0-4.8); Mean Corpuscular HGB Conc 33.5 % (32.0-36.0); Mean Corpuscular Hemoglobin 30.7 pg (27.0-34.0); Mean Corpuscular Volume 91.7 fL (80.0-100.0); Mean Platelet Volume 8.4 fL (7.0-11.0); Mono # (Auto) 0.6 th/mm3 (0.0-0.9); Neut # (Auto) 3.3 th/mm3 (1.8-7.7); Neut % (Auto) 76.4 % (16.0-70.0); Platelet Count 276 th/mm3 (150-450); Red Blood Count 3.66 mil/mm3 (4.50-5.90); Red Cell Distribution Width 12.6 % (11.6-17.2); White Blood Count 4.3 th/mm3 (4.0-11.0)
[2018-11-27 09:11] LABS: Potassium 3.4 meq/L (3.5-5.1)
[2018-11-27 09:14] LABS: Calcium 9.2 mg/dL (8.5-10.1); Carbon Dioxide 38.2 meq/L (21.0-32.0)
[2018-11-27 09:20] LABS: Activated Partial Thrombo Time 28.4 sec (23.4-31.7)
--- NOTE | 2018-11-27 14:16 | ECG ---
Date Performed: 11/27/2018 Time Performed: 09:14:49 PTAGE: 78 years EKG: SINUS BRADYCARDIA WITH FIRST DEGREE AV BLOCK BUNDLE BRANCH BLOCK WITH LAFB ABNORMAL ECG NO PREVIOUS TRACING DOCTOR: Miguel Melo Interpretating Date/Time 11/27/2018 14:14:55
[2018-11-27] MEDS ORDERED: Bupivacaine/Epinephrine Inj 0.25% 50 ML Vial ONE (15:18)
[2018-11-27] MEDS ORDERED: Sugammadex Inj 200 MG/2 ML Vial IV.PUSH ONE (16:32)
[2018-11-27] MEDS ORDERED: Morphine Inj 4 MG/ML Vial IV.PUSH PRN (17:16)
[2018-11-27] MEDS ORDERED: *morphine SULFATE 10 MG/ML PERIprocedure ONLY ONE (17:17)
[2018-11-27] MEDS ORDERED: fentaNYL Citrate Inj 100 MCG/2 ML Ampul ONE (17:17)
[2018-11-27] MEDS: Sod Chloride 0.9% Inj 1,000 ML IV.CONT SCH (18:00)
--- NOTE | 2018-11-27 18:06 | MP ---
cc: Aries Landa MD DATE OF OPERATION: 11/27/2018 PREOPERATIVE DIAGNOSES: 1. Adhesive small-bowel obstruction. 2. Bilateral inguinal hernias, reducible. POSTOPERATIVE DIAGNOSES: 1. Adhesive small-bowel obstruction due to single band adhesion related to previous left nephrectomy. 2. Bilateral inguinal hernias, completely reduced on laparoscopy. PROCEDURES: 1. Diagnostic operative laparoscopy. 2. Laparoscopic lysis of adhesions for treatment of small-bowel obstruction. ATTENDING SURGEON: Aries Landa MD PROSTHODONTIST: Staff. ANESTHESIA: General and local anesthetic. COMPLICATIONS: None. BLOOD LOSS: Less than 10 mL FINDINGS: 1. Moderate adhesions from the previous left nephrectomy incision and the abdominal wall, mostly involving omentum that were thin and filmy. 2. One adhesion at the most medial portion of the nephrectomy incision that was densely adherent to the antimesenteric portion of small bowel in the ileum with an approximately 720 two-rotation twist causing the obstruction with a transition. 3. Bilateral inguinal hernias, completely spontaneously reduced with no evidence of incarceration on diagnostic operative laparoscopy. INDICATIONS FOR PROCEDURE: The patient is a 78-year-old male who presented to the emergency department with nausea, vomiting, and abdominal distention. The patient underwent a CT scan and was found to have a small-bowel obstruction, and this was clinically felt to be related to his inguinal hernias, particularly the right inguinal hernia. The patient clinically had very reducible, soft, nontender, benign-appearing bilateral inguinal hernias and was admitted to [facility] for observation. The patient continued to have symptoms of obstruction, although he continued to have reducible hernias. Further workup with a small-bowel followthrough did show continued obstruction. After discussion with the patient and his family about the risks, benefits, and alternatives to laparoscopic versus open lyses of adhesions for treatment of his bowel obstruction, they agreed to undergo the procedure. DESCRIPTION OF PROCEDURE: The patient was taken to the operating room and placed in a supine position, placed under general endotracheal anesthesia. The patient's abdomen was shaved, prepped, and draped in a sterile fashion. Timeout was performed. The abdomen was entered through a Cherri-type technique where we directly visualized entry above the umbilicus. A 10 mm trocar was directly placed into the abdomen after we had entered through the peritoneal layer. We insufflated the abdomen and surveyed the abdomen, and there was no evidence of any complication from our entry. We were able to see dense adhesions over on the left side where the patient had a previous nephrectomy. However, there were no adhesions anywhere else in the abdomen. We placed two 5 mm ports which were in the right lower quadrant on direct visualization of the laparoscope. We were able to manipulate the viscera. There was some decompressed and dilated bowel, but there was no clear transition, and it appeared that the transition may actually lie somewhere in the adhesions. We took down the adhesions mostly sharply with the laparoscopic EndoShears, mostly taking down filmy attachments of the omentum to the previous nephrectomy incision. Once we had taken down all of the omentum, there was one loop of small bowel that was uncovered, that was adhered to the most medial portion of the incision at the antimesenteric border that had either 1-1/2 to almost 2 full twists in it. It was clear that the dilated bowel was entering this area, and it was decompressed leaving it. This appeared to be the transition. We used the scissors to sharply dissect this down, taking care to stay close to the abdominal wall and avoiding any serosal injuries. This came down quite easily, and we used graspers to further evaluate this. This was easily untwisted, and there was no evidence of any leak from the bowel or serosal injury. There really was no evidence of any obstruction further. At this point, we were able to milk bowel contents past this area. At this point in time, we did further evaluate the patient's inguinal hernias, and the hernia defects were visualized, and they were nonincarcerated bilaterally. At this point in time, I felt that the patient's bowel obstruction had been adequately treated. I did not feel it was warranted to continue further dissection or adhesiolysis to evaluate all of the bowel as we clearly had found the problem, and the patient had some very dense adhesions on the very left side of the abdomen that appeared to be much higher risk for attempt at lysis. I felt it was in the patient's best interest to complete the operation. All ports were removed under visualization of laparoscope, and pneumoperitoneum was expressed. Port sites were closed with 0 Vicryl at the fascia and 4-0 Monocryl and skin glue at the skin. The patient was discontinued from anesthesia, taken to the PACU in stable condition. The patient tolerated the procedure well, and there were no apparent complications. All counts were correct, and I was present and scrubbed for the entire procedure. MD GILBERTO Gray/william , 05:15 PM , 05:28 PM
[2018-11-28] MEDS: Sod Chloride 0.9% Inj 1,000 ML IV.CONT SCH ×5 (06:31→20:32)
[2018-11-28] MEDS: Gabapentin 100 MG Capsule PO SCH ×5 (08:37→19:56)
[2018-11-28] MEDS: amLODIPine 5 MG Tablet PO SCH (08:37)
--- NOTE | 2018-11-28 10:03 | P.PNGS ---
Subjective Patient reports: feels better, flatus, no bowel movement Physical Exam Vital signs: Vital Signs 11/27/18 12:00 11/27/18 13:40 11/27/18 13:44 Temperature 97.9 F 98.6 F Pulse Rate 45 L 48 L Respiratory Rate 17 20 Blood Pressure 179/77 H 158/72 H Pulse Oximetry 94 L 94 L 98 11/27/18 16:57 11/27/18 17:00 11/27/18 17:15 Temperature 97.5 F L Pulse Rate 64 64 62 Respiratory Rate 16 16 16 Blood Pressure 138/63 117/66 141/66 H Pulse Oximetry 93 L 94 L 94 L 11/27/18 17:30 11/27/18 17:45 11/27/18 18:00 Temperature Pulse Rate 60 54 L 56 L Respiratory Rate 16 16 16 Blood Pressure 133/62 146/67 H 125/57 L Pulse Oximetry 96 96 96 11/27/18 19:49 11/27/18 23:53 11/28/18 04:00 Temperature 97.5 F L 97.2 F L 97.9 F Pulse Rate 48 L 76 45 L Respiratory Rate 17 16 17 Blood Pressure 151/68 H 164/72 H 155/73 H Pulse Oximetry 97 95 96 11/28/18 08:00 Temperature 98.2 F Pulse Rate 83 Respiratory Rate 19 Blood Pressure 161/74 H Pulse Oximetry 96 Intake & Output 11/27/18 11/28/18 11/28/18 18:59 06:59 18:59 Intake Total 1500 / 1500 1500 / 1500 Output Total 965 / 965 Balance 535 / 535 1500 / 1500 Weight 82.3 kg Intake: IV 1000 / 1000 NS Inj 1,000 ML @ 100 mls/hr IV 1000 / 1000 .CONT .Q10H [facility] Rx#:[id number] Oral 500 / 500 Anesthesia Amount 1500 / 1500 Output: Estimated Blood Loss 15 / 15 Gastric Drainage 950 / 950 Left Nare Nasogastric Tube 950 / 950 Other: # Voids 1 1 - Routine Abdominal Exam Present: soft (mild distendsion incisions c/d/i) Results - Labs 11/27/18 08:50 11/27/18 08:50 Laboratory Results - last 24 hr 11/27/18 14:20 Blood Type A Negative Blood Type Recheck Required Antibody Screen Negative - Imaging Imaging: ITS Impressions Abdomen/Pelvis CT 11/24/18 12:21 CONCLUSION: 1. Dilated loops of proximal and mid small bowel consistent with obstruction. The cause of obstruction may be related to right inguinal hernia containing small bowel loops. 2. Left inguinal hernia containing large bowel without obstruction. 3. Soft tissue density along the posterior left kidney with calcifications may be related to postsurgical changes. Follow-up outpatient imaging recommended. 4. Hepatic cyst. 5. Punctate renal vascular calcifications versus nonobstructing calculi. Chest X-Ray 11/26/18 00:00 CONCLUSION: No acute intrathoracic disease. Small Bowel X-Ray 11/26/18 00:00 CONCLUSION: Gastrointestinal ileus Prompt emesis of contrast after ingestion. Abdomen X-Ray 11/27/18 08:00 CONCLUSION: Nasogastric tube in good position with decompression of the stomach Persistent proximal small bowel dilatation to 6 cm. Assessment and Plan - Plan sbo, s/p dx lap lap IAN POD 1, +flatus PLAN clamp ng, sips of clears ivf pain control ambulate dvt ppx
[2018-11-28 11:10] LABS: Baso % (Auto) 0.3 % (0.0-2.0); Eos # (Auto) 0.1 th/mm3 (0.0-0.4); Eos % (Auto) 2.7 % (0.0-4.0); Hematocrit 35.1 % (39.0-51.0); Hemoglobin 11.3 gm/dL (13.0-17.0); Lymph # (Auto) 0.4 th/mm3 (1.0-4.8); Lymph % (Auto) 8.8 % (9.0-44.0); Mean Corpuscular HGB Conc 32.1 % (32.0-36.0); Mean Corpuscular Hemoglobin 31.3 pg (27.0-34.0); Mean Corpuscular Volume 97.7 fL (80.0-100.0); Mean Platelet Volume 8.2 fL (7.0-11.0); Mono # (Auto) 0.6 th/mm3 (0.0-0.9); Mono % (Auto) 15.5 % (0.0-8.0); Neut % (Auto) 72.7 % (16.0-70.0); Platelet Count 211 th/mm3 (150-450); Red Cell Distribution Width 13.1 % (11.6-17.2); White Blood Count 4.1 th/mm3 (4.0-11.0)
[2018-11-28 11:15] LABS: Calcium 8.2 mg/dL (8.5-10.1); Carbon Dioxide 32.2 meq/L (21.0-32.0); Potassium 4.3 meq/L (3.5-5.1)
--- NOTE | 2018-11-28 12:18 | P.PNIM ---
Subjective Interval history: Patient is doing well status post laparoscopic surgery. NG tube remains when seen but will likely be removed today and patient will likely be started on clears today. No complaints from the patient today. Physical Exam Vital signs: Last Vital Signs Temp 98.2 F 11/28/18 08:00 Pulse 83 11/28/18 08:00 Resp 19 11/28/18 08:00 BP 161/74 H 11/28/18 08:00 Pulse Ox 96 11/28/18 11:22 Intake & Output 11/26/18 11/27/18 11/28/18 11/29/18 06:59 06:59 06:59 06:59 Intake Total 1920 / 1920 2480 / 2480 3000 / 3000 Output Total 2150 / 2150 3500 / 3500 965 / 965 Balance -230 / -230 -1020 / -1020 2034 Weight 80.5 kg 82.3 kg 82.3 kg Narrative: GENERAL: NAD, A&Ox3 HEAD: Normocephalic. NG tube in place. NECK: Supple, trachea midline. No lymphadenopathy. EYES: No scleral icterus. No injection or drainage. CARDIOVASCULAR: Regular rate and rhythm without murmurs, gallops, or rubs. RESPIRATORY: Breath sounds equal bilaterally. No accessory muscle use. GASTROINTESTINAL: Abdomen soft, non-tender, nondistended. MUSCULOSKELETAL: No cyanosis, or edema. Laparoscopic abdominal wounds. SKIN: Warm and dry. NEURO: No focal neurological deficits. Results Labs CBC & Chem 7: 11/28/18 10:17 11/28/18 10:17 Assessment and Plan Plan 78-year-old male admitted secondary to small bowel obstruction now status post laparoscopic surgical adhesion lysis small bowel obstruction Status post laparoscopic surgery, IAN Management per surgery Likely NG tube removal today Likely advancement to clear liquids today General surgeons following Continue IV fluids for now Discontinue once patient tolerating fluid intake No further signs of small bowel obstruction Azotemia Follow renal function Avoid nephrotoxins Hypertension Continue baseline treatment Follow blood pressures Adjust treatments as needed Hyperlipidemia Continue present treatment Follow as an outpatient DVT prophylaxis SCDs Progress Note: Quality VTE Deep Vein Thrombosis/Pulmonary Embolism Present on Admission: No
[2018-11-28 21:25] VITALS: RESP 18
[2018-11-29 04:48] LABS: Baso % (Auto) 0.1 % (0.0-2.0); Eos # (Auto) 0.1 th/mm3 (0.0-0.4); Eos % (Auto) 2.2 % (0.0-4.0); Hemoglobin 10.6 gm/dL (13.0-17.0); Lymph # (Auto) 0.3 th/mm3 (1.0-4.8); Lymph % (Auto) 6.4 % (9.0-44.0); Mean Corpuscular HGB Conc 34.4 % (32.0-36.0); Mean Corpuscular Hemoglobin 31.8 pg (27.0-34.0); Mean Corpuscular Volume 92.6 fL (80.0-100.0); Mean Platelet Volume 8.5 fL (7.0-11.0); Mono # (Auto) 0.6 th/mm3 (0.0-0.9); Mono % (Auto) 11.8 % (0.0-8.0); Neut # (Auto) 4.2 th/mm3 (1.8-7.7); Neut % (Auto) 79.5 % (16.0-70.0); Platelet Count 231 th/mm3 (150-450); Red Blood Count 3.34 mil/mm3 (4.50-5.90); Red Cell Distribution Width 13.1 % (11.6-17.2); White Blood Count 5.3 th/mm3 (4.0-11.0)
[2018-11-29 05:08] LABS: Albumin 2.6 g/dL (3.4-5.0); Anion Gap 5 meq/L (5-15); Aspartate Aminotransferase 30 U/L (15-37); Blood Urea Nitrogen 34 mg/dL (7-18); Carbon Dioxide 34.2 meq/L (21.0-32.0); Chloride 104 meq/L (98-107); Glomerular Filtration Rate 37 mL/min (>89); Glucose,Random 103 mg/dL (74-106); Potassium 3.7 meq/L (3.5-5.1); Sodium 143 meq/L (136-145)
[2018-11-29 05:09] LABS: Alanine Aminotransferase 19 U/L (12-78)
[2018-11-29 05:11] LABS: Alkaline Phosphatase 41 U/L (45-117); Total Protein 5.6 g/dL (6.4-8.2)
[2018-11-29] MEDS: amLODIPine 5 MG Tablet PO SCH (09:25)
[2018-11-29] MEDS: Gabapentin 100 MG Capsule PO SCH ×3 (09:25→18:08)
[2018-11-29] MEDS: Enoxaparin Inj 30 MG/0.3 ML Syringe SQ SCH (09:25)
--- NOTE | 2018-11-29 10:27 | P.PNGS ---
Subjective Patient reports: flatus (Patient has not had a bowel movement. He is actively passing flatus. His nasogastric tube is been clamped since yesterday, he has had no nausea or vomiting. NG tube was connected to suction and less than 50 mL 's returned. The NG tube was removed. He is no shortness of breath. His pain is well controlled.) Physical Exam Vital signs: Vital Signs 11/28/18 11:22 11/28/18 12:00 11/28/18 16:00 Temperature 98.0 F 98.0 F Pulse Rate 80 51 L Respiratory Rate 18 17 Blood Pressure 157/72 H 156/67 H Pulse Oximetry 96 95 94 L 11/28/18 20:00 11/29/18 00:00 11/29/18 08:00 Temperature 98.9 F 99.8 F H 97.5 F L Pulse Rate 52 L 92 H 90 Respiratory Rate 18 18 18 Blood Pressure 175/74 H 149/70 H 147/69 H Pulse Oximetry 90 L 93 L 94 L 11/29/18 09:05 Temperature Pulse Rate Respiratory Rate Blood Pressure Pulse Oximetry 94 L Intake & Output 11/28/18 11/29/18 11/29/18 18:59 06:59 18:59 Intake Total 1798 / 1798 1802 / 1802 Output Total 650 / 650 Balance 1798 / 1798 1152 / 1152 Weight 82.3 kg Intake: IV 1098 / 1098 1802 / 1802 NS Inj 1,000 ML @ 100 mls/hr IV 1098 / 1098 1802 / 1802 .CONT .Q10H [facility] Rx#:[id number] Oral 700 / 700 Output: Urine 650 / 650 Other: # Voids 6 Narrative: His lungs are clear to auscultation anteriorly bilaterally. His heart sounds are regular without obvious murmur rub or gallop. His abdomen is mildly distended yet soft. His laparoscopy incisions are healing well without evidence of erythema or drainage. Skin glue remains intact. He has active bowel sounds. He is actively passing flatus. His extremities are nonedematous. He has no calf tenderness. Results - Labs 11/29/18 04:07 11/29/18 04:01 Laboratory Results - last 24 hr 11/28/18 11/28/18 11/29/18 10:17 10:17 04:01 WBC 4.1 RBC 3.60 L Hgb 11.3 L Hct 35.1 L MCV 97.7 D MCH 31.3 MCHC 32.1 RDW 13.1 Plt Count 211 MPV 8.2 Neut % (Auto) 72.7 H Lymph % (Auto) 8.8 L Parmer % (Auto) 15.5 H Eos % (Auto) 2.7 Baso % (Auto) 0.3 Neut # (Auto) 3.0 Lymph # (Auto) 0.4 L Parmer # (Auto) 0.6 Eos # (Auto) 0.1 Baso # (Auto) 0.0 WBC Differential . Differential Comment Auto diff final Sodium 147 H 143 Potassium 4.3 D 3.7 Chloride 109 H D 104 Carbon Dioxide 32.2 H 34.2 H Anion Gap 6 5 BUN 44 H 34 H Creatinine 1.90 H 1.78 H Estimated GFR 35 L 37 L Random Glucose 90 103 Calcium 8.2 L D 8.0 L Total Bilirubin 0.5 AST 30 ALT 19 Alkaline Phosphatase 41 L Total Protein 5.6 L D Albumin 2.6 L 11/29/18 04:07 WBC 5.3 RBC 3.34 L Hgb 10.6 L Hct 31.0 L MCV 92.6 D MCH 31.8 MCHC 34.4 RDW 13.1 Plt Count 231 MPV 8.5 Neut % (Auto) 79.5 H Lymph % (Auto) 6.4 L Parmer % (Auto) 11.8 H Eos % (Auto) 2.2 Baso % (Auto) 0.1 Neut # (Auto) 4.2 Lymph # (Auto) 0.3 L Parmer # (Auto) 0.6 Eos # (Auto) 0.1 Baso # (Auto) 0.0 WBC Differential . Differential Comment Auto diff final Sodium Potassium Chloride Carbon Dioxide Anion Gap BUN Creatinine Estimated GFR Random Glucose Calcium Total Bilirubin AST ALT Alkaline Phosphatase Total Protein Albumin - Imaging Imaging: ITS Impressions Abdomen/Pelvis CT 11/24/18 12:21 CONCLUSION: 1. Dilated loops of proximal and mid small bowel consistent with obstruction. The cause of obstruction may be related to right inguinal hernia containing small bowel loops. 2. Left inguinal hernia containing large bowel without obstruction. 3. Soft tissue density along the posterior left kidney with calcifications may be related to postsurgical changes. Follow-up outpatient imaging recommended. 4. Hepatic cyst. 5. Punctate renal vascular calcifications versus nonobstructing calculi. Chest X-Ray 11/26/18 00:00 CONCLUSION: No acute intrathoracic disease. Small Bowel X-Ray 11/26/18 00:00 CONCLUSION: Gastrointestinal ileus Prompt emesis of contrast after ingestion. Abdomen X-Ray 11/27/18 08:00 CONCLUSION: Nasogastric tube in good position with decompression of the stomach Persistent proximal small bowel dilatation to 6 cm. Assessment and Plan - Assessment (1) Small bowel obstruction Code(s): K56.609 - Unspecified intestinal obstruction, unspecified as to partial versus complete obstruction Status: Acute - Plan Postop day 2 status post laparoscopic adhesio lysis. Plan remove NG tube. Full liquid diet. Walk halls. Hopefully be able to advance diet and discharge home in the next 24-48 hours. The patient is very anxious to get out of the hospital. Discussed Condition With: Patient and bedside RN
--- NOTE | 2018-11-29 11:52 | P.PNIM ---
Subjective Interval history: NG tube removed. Patient tolerating diet thus far. No complaints of nausea. Physical Exam Vital signs: Last Vital Signs Temp 97.5 F L 11/29/18 08:00 Pulse 90 11/29/18 08:00 Resp 18 11/29/18 08:00 BP 147/69 H 11/29/18 08:00 Pulse Ox 94 L 11/29/18 09:05 Intake & Output 11/27/18 11/28/18 11/29/18 11/30/18 06:59 06:59 06:59 06:59 Intake Total 2480 / 2480 3000 / 3000 3600 / 3600 Output Total 3500 / 3500 965 / 965 650 / 650 Balance -1020 / -1020 2035 / 2035 2950 / 2950 Weight 82.3 kg 82.3 kg 82.3 kg Narrative: GENERAL: NAD, A&Ox3 HEAD: Normocephalic. NG tube in place. NECK: Supple, trachea midline. No lymphadenopathy. EYES: No scleral icterus. No injection or drainage. CARDIOVASCULAR: Regular rate and rhythm without murmurs, gallops, or rubs. RESPIRATORY: Breath sounds equal bilaterally. No accessory muscle use. GASTROINTESTINAL: Abdomen soft, non-tender, nondistended. MUSCULOSKELETAL: No cyanosis, or edema. Laparoscopic abdominal wounds. SKIN: Warm and dry. NEURO: No focal neurological deficits. Results Labs CBC & Chem 7: 11/29/18 04:07 11/29/18 04:01 Assessment and Plan (1) Small bowel obstruction: Code(s): K56.609 - Unspecified intestinal obstruction, unspecified as to partial versus complete obstruction Status: Acute Plan 78-year-old male admitted secondary to small bowel obstruction now status post laparoscopic surgical adhesion lysis NG tube has been removed. Patient tolerating clear diet. IV fluids will be discontinued. Diet advancement plan likely tomorrow. Depending on how patient proceeds with recovery, potential discharge in 1-2 days. small bowel obstruction Status post laparoscopic surgery, IAN Management per surgery Likely NG tube removal today Likely advancement to clear liquids today General surgeons following Continue IV fluids for now Discontinue once patient tolerating fluid intake No further signs of small bowel obstruction Azotemia Follow renal function Avoid nephrotoxins Hypertension Continue baseline treatment Follow blood pressures Adjust treatments as needed Hyperlipidemia Continue present treatment Follow as an outpatient DVT prophylaxis SCDs Progress Note: Quality VTE Deep Vein Thrombosis/Pulmonary Embolism Present on Admission: No
[2018-11-30] MEDS: Enoxaparin Inj 30 MG/0.3 ML Syringe SQ SCH (08:21)
[2018-11-30] MEDS: Gabapentin 100 MG Capsule PO SCH ×2 (08:22→13:02)
[2018-11-30] MEDS: amLODIPine 5 MG Tablet PO SCH (08:22)
--- NOTE | 2018-11-30 13:57 | P.PNGS ---
Subjective Interval history: Resting in bed No issues overnight Tolerating clear liquids Had BM Physical Exam Vital signs: Vital Signs 11/29/18 16:00 11/29/18 20:00 11/30/18 00:00 Temperature 99.7 F H 98.2 F 98.2 F Pulse Rate 86 84 81 Respiratory Rate 18 18 18 Blood Pressure 165/77 H 169/79 H 177/83 H Pulse Oximetry 94 L 92 L 92 L 11/30/18 04:00 11/30/18 08:00 11/30/18 09:04 Temperature 97.9 F 98.3 F Pulse Rate 81 81 Respiratory Rate 18 18 Blood Pressure 142/67 H 190/84 H Pulse Oximetry 90 L 94 L 92 L Intake & Output 11/29/18 11/30/18 11/30/18 18:59 06:59 18:59 Intake Total 2200 / 2200 240 / 240 Output Total 1165 / 1165 Balance 1035 / 1035 240 / 240 Weight 82.3 kg Intake: Oral 700 / 700 240 / 240 Anesthesia Amount 1500 / 1500 Output: Urine 200 / 200 Estimated Blood Loss 15 / 15 Gastric Drainage 950 / 950 Left Nare Nasogastric Tube 950 / 950 Other: # Voids 6 3 Date of Last Bowel Movement 11/24/18 11/30/18 Narrative: Alert and awake Abd: soft; non tender; incision sites with skin glue--- c/d/i Results - Labs 11/29/18 04:07 11/29/18 04:01 - Imaging Imaging: ITS Impressions Abdomen/Pelvis CT 11/24/18 12:21 CONCLUSION: 1. Dilated loops of proximal and mid small bowel consistent with obstruction. The cause of obstruction may be related to right inguinal hernia containing small bowel loops. 2. Left inguinal hernia containing large bowel without obstruction. 3. Soft tissue density along the posterior left kidney with calcifications may be related to postsurgical changes. Follow-up outpatient imaging recommended. 4. Hepatic cyst. 5. Punctate renal vascular calcifications versus nonobstructing calculi. Chest X-Ray 11/26/18 00:00 CONCLUSION: No acute intrathoracic disease. Small Bowel X-Ray 11/26/18 00:00 CONCLUSION: Gastrointestinal ileus Prompt emesis of contrast after ingestion. Abdomen X-Ray 11/27/18 08:00 CONCLUSION: Nasogastric tube in good position with decompression of the stomach Persistent proximal small bowel dilatation to 6 cm. Assessment and Plan - Assessment (1) Small bowel obstruction Code(s): K56.609 - Unspecified intestinal obstruction, unspecified as to partial versus complete obstruction Status: Acute - Plan 78 year old male with RIH; reduced; SBO -POD3 dx lap; lap IAN -NGT out -+BM -Advance to soft diet -Possible DC home later this evening if no issues with diet -Rx for pain on chart
[2018-11-30 14:04] VITALS: BP 168/73; PULSE 83; TEMP 98.9; O2SAT 94
--- NOTE | 2018-11-30 14:53 | P.PN ---
Subjective Interval history: up and ambulating + flatus had a regular hamburger for lunch- toelrated well Physical Exam Vital signs: Vital Signs 11/29/18 16:00 11/29/18 20:00 11/30/18 00:00 Temperature 99.7 F H 98.2 F 98.2 F Pulse Rate 86 84 81 Respiratory Rate 18 18 18 Blood Pressure 165/77 H 169/79 H 177/83 H Pulse Oximetry 94 L 92 L 92 L 11/30/18 04:00 11/30/18 08:00 11/30/18 09:04 Temperature 97.9 F 98.3 F Pulse Rate 81 81 Respiratory Rate 18 18 Blood Pressure 142/67 H 190/84 H Pulse Oximetry 90 L 94 L 92 L 11/30/18 12:00 Temperature 98.9 F Pulse Rate 83 Respiratory Rate 18 Blood Pressure 168/73 H Pulse Oximetry 94 L Intake & Output 11/29/18 11/30/18 11/30/18 18:59 06:59 18:59 Intake Total 2200 / 2200 240 / 240 Output Total 1165 / 1165 Balance 1035 / 1035 240 / 240 Weight 82.3 kg Intake: Oral 700 / 700 240 / 240 Anesthesia Amount 1500 / 1500 Output: Urine 200 / 200 Estimated Blood Loss 15 / 15 Gastric Drainage 950 / 950 Left Nare Nasogastric Tube 950 / 950 Other: # Voids 6 3 Date of Last Bowel Movement 11/24/18 11/30/18 Narrative: Alert and awake lungs- clear regular rhythm Abd: soft; non tender; incision sites with skin glue--- c/d/i good bowel sounds' extremities no edema Results - Labs CBC & Chem 7: 11/29/18 04:07 11/29/18 04:01 Assessment and Plan - Assessment (1) Small bowel obstruction Code(s): K56.609 - Unspecified intestinal obstruction, unspecified as to partial versus complete obstruction Status: Acute - Plan 78-year-old male admitted secondary to small bowel obstruction now status post laparoscopic surgical adhesion lysis NG tube has been removed. Patient tolerating clear diet. IV fluids will be discontinued. Diet advancement plan likely tomorrow. Depending on how patient proceeds with recovery, potential discharge in 1-2 days. small bowel obstruction Status post laparoscopic surgery, IAN Management per surgery - tolerating po well PRICE -secondary to above -likely udnerlying Hypertensive nephropathy Follow renal function= creatinine trending down Avoid nephrotoxins advise OP ff up with PCP d/w patient- confirmed to me that pcp monitinr renal functions Hypertension Continue baseline treatment- continue home meds- amloidpine and cozaar- PCP ff up Follow blood pressures Adjust treatments as needed Hyperlipidemia Continue present treatment- statins Follow as an outpatient DVT prophylaxis SCDs DC home today OP ff up with PVP
--- NOTE | 2018-11-30 15:04 | P.DS ---
Date of admission: 11/24/18 15:40 Primary care physician: Henrietta Peoples Brief History from admission: 78-year-old male with known history of hypertension, hyperlipidemia who presented to the hospital because of abdominal pain, nausea and vomiting. Patient states that he was in his normal state of health until yesterday while he was out playing golf he started developing a sharp stabbing pain in the middle part of his abdomen it was persisted throughout the day. Patient did try to eat and drink however it caused the pain to get worse. He did start having episodes of nausea and vomiting last evening. He was able to sleep through the night and then today he was still having the intermittent stabbing type abdominal pain in the abdomen. He did have a normal bowel movement at 11 morning. Shortly after that he had another episode of vomiting. Because the pain did not resolve and he continued to be nauseous with vomiting. Patient came to emergency department for evaluation found to have a small bowel obstruction. Upon review of CT scan does appear that he has bilateral lower inguinal hernias with contained bowel. These were easily reducible and patient' s pain did improve. The patient indicates that he does have history of bilateral inguinal hernias. He has notified by his biomedical doctor that since they are not causing any problems there is no reason to have any surgery at that time. Patient had NG tube placement as recommended by ER physician the patient be admitted for further evaluation and management. DS: Diagnosis - Discharge Diagnosis (1) Small bowel obstruction Status: Acute DS: Medications - Discharge Medications Prescriptions: oxycodone 5 mg PO Q4H PRN #10 tab PRN Reason: acute post op pain exception DS: Summary - Time Spent with Patient Total time spent providing and/or coordinating discharge services: - Quality: VTE Deep Vein Thrombosis/Pulmonary Embolism Present on Admission: No Exam Vital signs: Vital Signs 11/29/18 16:00 11/29/18 20:00 11/30/18 00:00 Temperature 99.7 F H 98.2 F 98.2 F Pulse Rate 86 84 81 Respiratory Rate 18 18 18 Blood Pressure 165/77 H 169/79 H 177/83 H Pulse Oximetry 94 L 92 L 92 L 11/30/18 04:00 11/30/18 08:00 11/30/18 09:04 Temperature 97.9 F 98.3 F Pulse Rate 81 81 Respiratory Rate 18 18 Blood Pressure 142/67 H 190/84 H Pulse Oximetry 90 L 94 L 92 L 11/30/18 12:00 Temperature 98.9 F Pulse Rate 83 Respiratory Rate 18 Blood Pressure 168/73 H Pulse Oximetry 94 L Intake & Output 11/29/18 11/30/18 11/30/18 18:59 06:59 18:59 Intake Total 2200 / 2200 240 / 240 Output Total 1165 / 1165 Balance 1035 / 1035 240 / 240 Weight 82.3 kg Intake: Oral 700 / 700 240 / 240 Anesthesia Amount 1500 / 1500 Output: Urine 200 / 200 Estimated Blood Loss 15 Gastric Drainage 950 / 950 Left Nare Nasogastric Tube 950 / 950 Other: # Voids 6 3 Date of Last Bowel Movement 11/24/18 11/30/18 Results - Impressions ITS Impressions Abdomen/Pelvis CT 11/24/18 12:21 CONCLUSION: 1. Dilated loops of proximal and mid small bowel consistent with obstruction. The cause of obstruction may be related to right inguinal hernia containing small bowel loops. 2. Left inguinal hernia containing large bowel without obstruction. 3. Soft tissue density along the posterior left kidney with calcifications may be related to postsurgical changes. Follow-up outpatient imaging recommended. 4. Hepatic cyst. 5. Punctate renal vascular calcifications versus nonobstructing calculi. Chest X-Ray 11/26/18 00:00 CONCLUSION: No acute intrathoracic disease. Small Bowel X-Ray 11/26/18 00:00 CONCLUSION: Gastrointestinal ileus Prompt emesis of contrast after ingestion. Abdomen X-Ray 11/27/18 08:00 CONCLUSION: Nasogastric tube in good position with decompression of the stomach Persistent proximal small bowel dilatation to 6 cm. Discharge Plan - Discharge Disposition Patient Disposition: Discharge Home - Discharge Condition Condition: Stable - Discharge Order Discharge Orders: Discharge Order (Routine); Ordered 11/30/18 Ordered By: Raquel Valentin - Discharge Details Anticipated Discharge Date: 11/24/18 - Physicians Team Attending Provider: Raquel Valentin Other Providers: Aries Landa MD
== END 2018-11-30 16:56 | disposition home or self-care (01) | DRG 336 ==
LOC: PHED 11:55 → PHEDA 11:55 → PH3 15:39 → HSDI 11-27 13:35 → N07 11-27 17:10
PROVIDERS: ADMIT Internal Medicine; ATTEND Internal Medicine
CPT/HCPCS: 71020; 71046; 74000; 74018; 74176; 74250; 80048; 80053; 81001; 83605; 83690; 83735; 85025; 85610; 85730; 86850; 86900; 86901; 90774; 93005; 96374; 99285; C8952; J1650; J2250; J2270; J2405; J3010; J7030; Q9963